=== PATIENT | female | born 1995 | race Caucasian/White ===

== ENCOUNTER → 2023-04-01 | Outpatient (REF) | payer OTHER | LOC: M SFHCWAGY 13:29 | PROVIDERS: ATTEND Nurse Practitioner Family | DX: Z12.4 Encounter for screening for malignant neoplasm of cervix (principal) | CPT/HCPCS: 87624; G0123 ==

== ENCOUNTER → 2023-04-07 | Outpatient (CLI) | payer OTHER | LOC: M WHC 07:08 → EDUNIT# 07:30 | PROVIDERS: ATTEND Nurse Practitioner Family | DX: N83.01 Follicular cyst of right ovary (principal); N83.02 Follicular cyst of left ovary; I86.2 Pelvic varices ==

== ENCOUNTER → 2023-06-02 | Outpatient (REF) | payer OTHER | LOC: M SFHCWAGY 12:45 | PROVIDERS: ATTEND Obstetrics & Gynecology | DX: R87.613 High grade squamous intraepithelial lesion on cytologic smear of cervix (HGSIL) (principal) ==

== ENCOUNTER 2023-08-13 06:20 | Day surgery (SDC) | payer OTHER ==
[~2023-08-13] VITALS: Ht 160 cm; Wt 61.2 kg
[~2023-08-13 06:20] MED LIST: LR 1,000 ML IV SCH; SRONYX PO
[2023-08-13] MEDS: LR 1,000 ML IV SCH (06:54)
[2023-08-13 06:58] LABS: MEAN CORPUSCULAR HEMOGLOBIN 30.8 pg (27.0-33.0); MEAN CORPUSCULAR VOLUME 88.1 fl (80.0-96.0); PLATELET COUNT, AUTOMATED 257 10^3/uL (150-450); RED BLOOD COUNT 4.54 10^6/uL (4.00-5.40); WHITE BLOOD COUNT 8.2 10^3/uL (4.0-10.0)
[2023-08-13] MEDS ORDERED: ONDANSETRON 4MG 2ML VIAL As Ordered ONE (07:19)
[2023-08-13] MEDS ORDERED: propofoL 200 MG/20 ML VIAL As Ordered ONE (07:19)
[2023-08-13] MEDS ORDERED: LIDOCAINE 2% 100MG/5ML SDV (FOR ANES.) As Ordered ONE (07:19)
[2023-08-13] MEDS ORDERED: KETOROLAC 60MG 2ML VIAL As Ordered ONE (07:19)
[2023-08-13] MEDS ORDERED: MIDAZOLAM INJ 2MG/2ML VIAL As Ordered ONE (07:20)
[2023-08-13] MEDS ORDERED: fentaNYL 100 MCG/2 ML INJECTION As Ordered ONE (07:20)
[2023-08-13] MEDS ORDERED: dexmedeTOMIDine (4MCG/ML)200MCG/50ML BTL (PRECEDEX) As Ordered ONE (07:34)
[2023-08-13] MEDS ORDERED: ACETAMINOPHEN 1000MG 100ML IV BAG As Ordered ONE (08:03)
[2023-08-13] MEDS ORDERED: METOCLOPRAMIDE INJ 10MG/2ML VIAL As Ordered ONE (08:16)
[2023-08-13] MEDS: LIDOCAINE W/EPINEPHRINE 1% 20ML VIAL As Ordered ONE (08:33)
[2023-08-13] MEDS: SILVER NITRATE APPLICATOR (1 = QTY 10) As Ordered ONE (08:33)
[2023-08-13] MEDS: IODINE STRONG SOLN 15ML BTL As Ordered ONE (08:33)
[2023-08-13] MEDS ORDERED: IBUP1TAB7 PO (08:38)
[2023-08-13] MEDS ORDERED: oxyCODONE 5MG TAB PO PRN (08:40)
[2023-08-13] MEDS ORDERED: LR 1,000 ML IV SCH (08:40)
[2023-08-13] MEDS ORDERED: ONDANSETRON 4MG 2ML VIAL IV PRN (08:40)
[2023-08-13] MEDS ORDERED: HYDROMORPHONE HCL 0.5 MG/ 0.5 ML SYRINGE IV PRN (08:40)
[2023-08-13] MEDS ORDERED: fentaNYL 100 MCG/2 ML INJECTION IV PRN (08:40)
[2023-08-13 09:49] VITALS: BP 102/68; TEMP 97.5; O2SAT 100
== END 2023-08-13 10:15 | disposition home or self-care (01) ==
LOC: M SDC 06:20
PROVIDERS: ATTEND Obstetrics & Gynecology
DX: D06.0 Carcinoma in situ of endocervix (principal); N88.8 Other specified noninflammatory disorders of cervix uteri; Z90.49 Acquired absence of other specified parts of digestive tract
CPT/HCPCS: 36415; 57522; 81025; 85027; 86850; 86900; 86901; 88307; J0131; J1100; J1885; J2250; J2405; J2765; J3010